=== PATIENT | male | born 1995 ===

== ENCOUNTER 2018-11-24 06:37 | Emergency (ER) | payer OTHER ==
[2018-11-24] MEDS ORDERED: NS(*) 0.9% 1000 ML BAG 1,000 ML IV ONE (06:55)
[2018-11-24] MEDS ORDERED: fentaNYL CITR 100 MCG/2 ML AMP IVP ONE (06:55)
[2018-11-24] MEDS ORDERED: ONDANSETRON 4 MG/2 ML VIAL IVP ONE (06:55)
--- NOTE | 2018-11-24 07:05 | ER Report ---
History and Physical Time Seen By MD: 07:05 Hx. of Stated Complaint: patient reports getting out of bed and hearing a pop in the right shoulder. says this has happened before but it usually goes back in HPI/ROS CHIEF COMPLAINT: Right-sided shoulder dislocation HISTORY OF PRESENT ILLNESS: Patient is a 22-year-old male here with complaints of suspected right shoulder dislocation. Patient has had dislocations in the past and he was getting out of bed and went he felt his shoulder pop out of place. Patient was unable to reduce the dislocation. Patient is neurovascularly intact, deltoid sensation is intact, neurovascular exam is unremarkable with capillary refill less than 2 seconds. Patient denies further trauma at this time. REVIEW OF SYSTEMS: Constitutional: No fever, no chills. Eyes: No discharge. ENT: No sore throat. Cardiovascular: No chest pain, no palpitations. Respiratory: No cough, no shortness of breath. Gastrointestinal: No abdominal pain, no vomiting. Genitourinary: No hematuria. Musculoskeletal: Right-sided shoulder abnormality. Skin: No rashes. Neurological: Patient is neurovascularly intact Allergies: Coded Allergies: No Known Drug Allergies (Unverified , 11/24/18) Smoking Status: Never Smoker Hx Substance Use Disorder: No Hx Alcohol Use: No Constitutional Physical Exam General Appearance: The patient is alert, has no immediate need for airway protection and no signs of toxicity. No acute distress Eyes: Pupils equal and round no pallor or injection. ENT, Mouth: Mucous membranes are moist. Respiratory: There are no retractions, lungs are clear to auscultation. Cardiovascular: Regular rate and rhythm. [ ] Gastrointestinal: Abdomen is soft and non tender, no masses, bowel sounds normal. Neurological: Neurovascular exam is intact distal to the dislocation site, deltoid sensation is intact Skin: Warm and dry, no rashes. Musculoskeletal: + Right shoulder abnormality suspected dislocation [ ] DIFFERENTIAL DIAGNOSIS: After history and physical exam differential diagnosis was considered for dislocation, fracture, subluxation Medical Decision Making EKG/Imaging Imaging PATIENT NAME: Denilson Robertson : 1995 MR: [id number] V: [id number] EXAM DATE: ORDERING PHYSICIAN: DHARA HSU TECHNOLOGIST: Location: Patient: Denilson Robertson : 1995 Visit/Account:[id number] Date of Sevice: 11/24/2018 INDICATION: Fall, right shoulder injury. EXAM DATE: 11/24/2018 6:50 AM COMPARISON: None. FINDINGS: 4 views of the right shoulder. Mineralization is normal. The humeral head is anteriorly, medially and inferiorly dislocated. No well-demonstrated fracture. Soft tissues are unremarkable. IMPRESSION: Anterior dislocation of the right glenohumeral joint. PATIENT NAME: Denilson Robertson : 1995 MR: [id number] V: [id number] EXAM DATE: ORDERING PHYSICIAN: DHARA HSU TECHNOLOGIST: Location: Patient: Denilson Robertson : 1995 Visit/Account:[id number] Date of Sevice: 11/24/2018 SHOULDER MIN 2 VIEWS RIGHT Indication: Postreduction. Comparison: Earlier same day. Findings: 3 views of the right shoulder. Interval reduction of the right shoulder dislocation. No definite fracture. Normal mineralization, joint spaces, and alignment. Impression: Interval reduction of the right shoulder dislocation. No definite fracture. ED Course/Re-evaluation ED Course Patient is a 22-year-old male here with complaints of anterior shoulder dislocation after attempting to get out of bed. Patient was given etomidate, dislocation was reduced. X-ray imaging confirmed proper placement. Patient was neurovascularly intact post reduction. Sling was placed. Return precautions provided. Follow-up with orthopedics recommended. Procedure Right-sided anterior inferior shoulder dislocation was identified. Patient was given 10 mg of etomidate for sedation. Airway equipment and respiratory therapy was present. A timeout was called. I reduced the shoulder dislocation under sedation with a palpable reduction of the abnormality. Patient tolerated the procedure well and had no respiratory compromise. Patient was neurovascularly intact post reduction with deltoid sensation intact, capillary refill was less than 2 seconds. X-ray imaging confirmed successful reduction. Decision to Disposition Date: Nov 24, 2018 Decision to Disposition Time: 08:20 Depart Departure Latest Vital Signs Impression: Primary Impression: Shoulder dislocation Condition: Improved Disposition: HOME OR SELF-CARE Patient Instructions: Shoulder Dislocation (ED) Additional Instructions: Please drink plenty of water. Please keep the sling on for comfort. Please return immediately if she develop numbness, tingling, inability to move her hand, weakness. Please follow-up with orthopedics as needed. DHARA HSU DO Nov 24, 2018 07:05
--- NOTE | 2018-11-24 07:22 | RADIOLOGY IMAGING REPORT ---
FACILITY: [facility] [place] PATIENT NAME: Denilson Robertson : 1995 MR: [id number] V: [id number] EXAM DATE: ORDERING PHYSICIAN: DHARA HSU TECHNOLOGIST: Location: [facility] Patient: Denilson Robertson : 1995 Visit/Account:[id number] Date of Sevice: 11/24/2018 INDICATION: Fall, right shoulder injury. EXAM DATE: 11/24/2018 6:50 AM COMPARISON: None. FINDINGS: 4 views of the right shoulder. Mineralization is normal. The humeral head is anteriorly, medially an d inferiorly dislocated. No well-demonstrated fracture. Soft tissues are unremarkable. IMPRESSION: Anterior dislocation of the right glenohumeral joint. Report Dictated By: Mervin Wayne MD at 11/24/2018 7:17 AM Report E-Signed By: Mervin Wayne MD at 11/24/2018 7:19 AM WSN:[id number]
[2018-11-24] MEDS ORDERED: PROPOFOL EMUL 10MG/ML 20 ML VL IV ONE (07:30)
[2018-11-24] MEDS ORDERED: ETOMIDATE 20 MG/10 ML VIAL IVP ONE (07:30)
[2018-11-24 07:50] VITALS: BP 124/87
--- NOTE | 2018-11-24 08:05 | RADIOLOGY IMAGING REPORT ---
FACILITY: [facility] PATIENT NAME: Denilson Robertson : 1995 MR: [id number] V: [id number] EXAM DATE: ORDERING PHYSICIAN: DHARA HSU TECHNOLOGIST: Location: [facility] Patient: Denilson Robertson : 1995 Visit/Account:[id number] Date of Sevice: 11/24/2018 SHOULDER MIN 2 VIEWS RIGHT Indication: Postreduction. Comparison: Earlier same day. Findings: 3 views of the right shoulder. Interval reduction of the right shoulder dislocation. No definite fracture. Normal mineralization, joint spaces, and alignment. Impression: Interval reduction of the right shoulder dislocation. No definite fracture. Report Dictated By: Johnny Zamora MD at 11/24/2018 7:58 AM Report E-Signed By: Johnny Zamora MD at 11/24/2018 8:02 AM WSN:[id number]
== END 2018-11-24 08:33 | disposition home or self-care (01) ==
LOC: ER 07:19
DX: S43.004A Unspecified dislocation of right shoulder joint, initial encounter (principal)
CPT/HCPCS: 23650; 73030; 94770; 96361; 96374; 96375; 99152; 99285; A4565; J2405; J3010; J3490; J7030